=== PATIENT | female | born 1970 | race Caucasian/White ===

== ENCOUNTER 2019-12-14 15:44 | Outpatient (RCR) | payer OTHER, SELFPAY ==
--- NOTE | 2019-12-14 16:57 | PTOPEVAL ---
Thank you for referring this patient to [facility]. Please review, sign, date and return this plan of care SARA. I agree with and certify that the following plan of care is medically necessary. Referring Physician Date Admitting Provider: Attending Provider: PHYSICIAN NOT ON STAFF Referring Provider: *PT Outpatient Evaluation Start: 12/14/19 16:05 Freq: Status: Active Protocol: Document 12/14/19 16:05 TITO (Rec: 12/14/19 16:50 Mariella [id number]) Therapy Assessment Status Assessment Status Assessment Status Evaluation Outpatient Past Medical History Past Medical History Reason Unable to Obtain see patient intake form Evaluation Information Problem Diagnosis fracture of R fibula Onset 07/04/19 Subjective Information patient reports she fell Query Text:As Reported By Patient/ getting into her daughters car Family back in june of last year. she reports she fell on the R LE. she reports she did not require surgery. she reports she has bilateral AFO' s for drop feet and has had them for 2 years. she reports she as wearing her AFO's when she fell. she reports she is having some diffculty with healing and thus is just beginning her rehab. she reports she has had her boot off for over a month. difficulty with ambulation up and down steps. Prior Level of Function Comments Additional Prior Level of Function patient reports prior to her Comments fall she was walking with her rollator walker and bilateral AFO's. she reports prior to her fall she was not using any AD at home. she reports she was driving prior to her fall. she reports she has not driven since her fall. prior to fall, no issues ambulating up and down steps. Pain Assessment Timing of Pain Assessment Timing of Pain Assessment Assessment Pain Scale Pain Scale Used Numeric (1 - 10) Self Report Pain Assessment Right Ankle(s) Reported Pain Level 4 Current Pain Intensity 4 Lowest Pain Intensity 2 Greatest Pain Intensity 8 Pain Aggravating F
== END 2019-12-28 17:00 | disposition home or self-care (01) ==
LOC: CHSPT 15:44
DX: S82.451G Displaced comminuted fracture of shaft of right fibula, subsequent encounter for closed fracture with delayed healing (principal)
CPT/HCPCS: 97016; 97110; 97161; 97530

== ENCOUNTER 2024-05-04 09:51 | Outpatient (CLI) | payer MEDICARE, MEDICAID, SELFPAY ==
--- NOTE | 2024-05-04 | ECG_ITS ---
Test Date: 2024-05-04 10:18:52 Measurements Intervals [place] Rate: 65 P: 60 IA: 171 QRS: 73 QRSD: 80 T: 100 QT: 396 QTc: 412 Interpretive Statements SINUS RHYTHM CANNOT R/O SEPTAL INFARCT, AGE INDETERMINATE BORDERLINE ST-T WAVE ABNORMALITY- DIFFUSE LEADS ABNORMAL ECG No previous ECG available for comparison Electronically Signed On 05-04-2024 10:21:15 CDT by Ronald Sands D.O.
== END 2024-05-04 09:52 | disposition home or self-care (01) ==
PROVIDERS: PCP Family Medicine; Visit Provider Nurse Practitioner Family
DX: H49.43 Progressive external ophthalmoplegia, bilateral (principal); R94.31 Abnormal electrocardiogram [ECG] [EKG]
CPT/HCPCS: 93005

== ENCOUNTER 2024-06-23 08:58 | Outpatient (CLI) | payer MEDICARE, MEDICAID, SELFPAY ==
--- NOTE | ~2024-06-23 | MR_ITS ---
EXAMINATION: MR lumbar spine wo/w con DATE: 06/23/2024 10:02 INDICATION: Low back pain. Progressive external ophthalmoplegia. TECHNIQUE: Magnetic resonance imaging (MRI) of the lumbar spine was performed without and with 12 mL MultiHance intravenous contrast. COMPARISON: None FINDINGS: There are fibroids in the uterus measuring up to 1.9 cm. Bone alignment is normal. Vertebra l body heights are normal. There is severely decreased disc height at L5-S1. The distal spinal cord s ignal intensity is normal. The conus medullaris is at L1. The following disc levels are specifically discussed: L1-L2: The disc does not extend beyond the endplate margin. There is mild right facet joint osteoarth ritis. There is no neural foraminal stenosis. There is no central canal stenosis. L2-L3: The disc does not extend beyond the endplate margin. There is mild left facet joint osteoarthr itis. There is no neural foraminal stenosis. There is no central canal stenosis. L3-L4: The disc is mildly bulging. There is mild bilateral facet joint osteoarthritis. There is mild bilateral neural foraminal stenosis. There is mild central canal stenosis. L4-L5: The disc is bulging and has an annular fissure. There is mild bilateral facet joint osteoarthr itis. There is mild bilateral neural foraminal stenosis. There is mild central canal stenosis. L5-S1: The disc is bulging and has an annular fissure. There is no facet joint osteoarthritis. There is mild bilateral neural foraminal stenosis. There is mild central canal stenosis. IMPRESSION: 1. Severe lower lumbar spondylosis. Reviewed, dictated and finalized at location A.
== END 2024-06-23 08:59 | disposition home or self-care (01) ==
LOC: ANHIMG 09:03
PROVIDERS: PCP Family Medicine
DX: H49.40 Progressive external ophthalmoplegia, unspecified eye (principal); M47.896 Other spondylosis, lumbar region
CPT/HCPCS: 72158; A9577